=== PATIENT | male | born 1955 | race African-American/Black ===

== ENCOUNTER 2018-01-04 15:21 | Emergency (ER) | payer MEDICAID ==
[~2018-01-04] VITALS: Ht 177.8 cm; Wt 110.0 kg
[2018-01-04] MEDS ORDERED: LISI2.5T47 PO (15:25)
[2018-01-04] MEDS ORDERED: AMLO2.5T45 PO (15:26)
[2018-01-04 17:54] LABS: BASOPHILS % 0.7 % (0.0-2.0); EOSINOPHILS % 2.9 % (0.0-5.0); HEMOGLOBIN. 12.9 g/dL (14.0-18.0); LYMPHOCYTES % 40.5 % (20.0-50.0); MEAN CORPUSCULAR VOLUME 90.5 fL (80.0-94.0); MEAN PLATELET VOLUME 11.1 fl (7.4-10.4); MONOCYTES % 9.7 % (2.0-8.0); NEUTROPHILS % 46.2 % (40.0-76.0); PLATELET 228 x1000/uL (130-400); RED BLOOD CELL COUNT 4.31 mill/uL (4.7-6.1); RED CELL DISTRIBUTION WIDTH 15.6 % (11.6-14.6)
[2018-01-04 17:57] LABS: CHLORIDE 104 mEq/L (98-107)
[2018-01-04 18:14] LABS: AMMONIA 52 uMol/L (<32)
[2018-01-04 18:35] LABS: HEPATITIS B SURFACE ANTIGEN NEGATIVE
[2018-01-04] MEDS ORDERED: MORPHINE SULFATE 4 MG/ML CPJ (NOT FOR IM USE) IV ONE (19:00)
[2018-01-04 19:04] LABS: HEPATITIS B CORE AB IGM NEGATIVE
[2018-01-04 19:05] LABS: HEPATITIS A AB IGM NEGATIVE (NEGATIVE)
[2018-01-04 19:38] VITALS: BP 159/77
[2018-01-05] MEDS ORDERED: ASPI-986 MT (10:57)
== END 2018-01-04 22:57 | disposition left against medical advice (07) ==
LOC: ER 15:34
DX: M79.605 Pain in left leg (principal); D64.9 Anemia, unspecified; R61 Generalized hyperhidrosis; R01.1 Cardiac murmur, unspecified; K72.90 Hepatic failure, unspecified without coma; R79.89 Other specified abnormal findings of blood chemistry; E88.09 Other disorders of plasma-protein metabolism, not elsewhere classified; R53.81 Other malaise; E86.0 Dehydration; I10 Essential (primary) hypertension; F41.9 Anxiety disorder, unspecified; Z87.09 Personal history of other diseases of the respiratory system; Z98.890 Other specified postprocedural states; Z79.82 Long term (current) use of aspirin
CPT/HCPCS: 36415; 71045; 80053; 82140; 83036; 83735; 83880; 84484; 85025; 86705; 86709; 86803; 87340; 93005; 93970; 99285

== ENCOUNTER 2018-04-01 11:20 | Inpatient (IN) | payer OTHER, MEDICAID ==
[~2018-04-01] VITALS: Ht 180.3 cm; Wt 93.4 kg
[~2018-04-01 11:20] MED LIST: ASPI-986 MT
[2018-04-01] MEDS ORDERED: IBUPROFEN 600MG TABLET PO ONE (11:45)
[2018-04-01 12:27] LABS: BASOPHILS % 0.8 % (0.0-2.0); EOSINOPHILS % 2.1 % (0.0-5.0); HEMOGLOBIN. 14.2 g/dL (14.0-18.0); LYMPHOCYTES % 43.8 % (20.0-50.0); MEAN CORPUSCULAR HEMOGLOBIN 29.6 pg (28.0-32.0); MEAN CORPUSCULAR VOLUME 87.1 fL (80.0-94.0); MEAN PLATELET VOLUME 10.4 fl (7.4-10.4); MONOCYTES % 11.5 % (2.0-8.0); NEUTROPHILS % 41.8 % (40.0-76.0); PLATELET 162 x1000/uL (130-400); RED BLOOD CELL COUNT 4.82 mill/uL (4.7-6.1); RED CELL DISTRIBUTION WIDTH 17.2 % (11.6-14.6)
[2018-04-01 12:33] LABS: CHLORIDE 106 mEq/L (98-107); PROTHROMBIN TIME 10.3 sec (9.1-11.1)
[2018-04-01] MEDS ORDERED: HYDRALAZINE 20MG/ML VIAL IV ONE ×2 (14:00→15:30)
[2018-04-01] MEDS ORDERED: IOHEXOL-350 100 ML BOTTLE ONE (16:22)
[2018-04-01] MEDS ORDERED: ASPIRIN 81MG TABLET PO ONE (17:15)
[2018-04-01] MEDS ORDERED: NITROGLYCERIN 0.4MG TABLET SL SL PRN (17:15)
[2018-04-01 22:37] VITALS: BP 179/83
[2018-04-02] VITALS (7 sets, daily range): BP systolic 145–161; BP diastolic 66–95
[2018-04-02] MEDS ORDERED: HYDROMORPHONE HCL/PF 2MG/ML CPJ IV PRN (01:00)
[2018-04-02] MEDS: METOPROLOL TARTRATE 50MG TABLET PO SCH ×3 (01:14→20:27)
[2018-04-02] MEDS: NITROGLYCERIN OINT 1GM/INCH UDPKT TD SCH ×3 (01:14→18:00)
[2018-04-02] MEDS ORDERED: PNEUMOCOCCAL 23-VAL P-SAC VAC 0.5 ML IM ONE (08:00)
[2018-04-02] MEDS: ASPIRIN 325MG EC TABLET PO SCH (08:56)
[2018-04-02 09:30] LABS: BASOPHILS % 0.8 % (0.0-2.0); EOSINOPHILS % 1.9 % (0.0-5.0); HEMATOCRIT. 41.5 % (42.0-52.0); HEMOGLOBIN. 13.9 g/dL (14.0-18.0); LYMPHOCYTES % 42.6 % (20.0-50.0); MEAN CORPUSCULAR HEMOGLOBIN 29.1 pg (28.0-32.0); MEAN CORPUSCULAR VOLUME 87.2 fL (80.0-94.0); MEAN PLATELET VOLUME 9.7 fl (7.4-10.4); NEUTROPHILS % 44.7 % (40.0-76.0); PLATELET 159 x1000/uL (130-400); RED BLOOD CELL COUNT 4.76 mill/uL (4.7-6.1); RED CELL DISTRIBUTION WIDTH 17.3 % (11.6-14.6)
[2018-04-02 09:43] LABS: CHLORIDE 104 mEq/L (98-107)
[2018-04-02 09:53] LABS: LDL CHOLESTEROL 72 mg/dL (5-100)
[2018-04-02 09:54] LABS: HDL CHOLESTEROL 65 mg/dL (40-59)
[2018-04-02] MEDS: ENOXAPARIN 40MG/0.4ML SYR SUBCUT SCH (12:09)
[2018-04-02] MEDS: CLONIDINE 0.1MG TABLET PO PRN (16:25)
[2018-04-02] MEDS: HYDROCODONE/ACETAMINOPHEN 5/325MG TABLET PO PRN (16:26)
[2018-04-02 19:55] LABS: CLARITY URINE TURBID (CLEAR); COLOR URINE YELLOW (YELLOW); KETONES URINE NEGATIVE (NEGATIVE); LEUKOCYTE ESTERASE URINE NEGATIVE (NEGATIVE); NITRITE URINE NEGATIVE (NEGATIVE); OCCULT BLOOD URINE NEGATIVE (NEGATIVE); PH URINE 7.5 (4.5-8.0); PROTEIN URINE NEGATIVE (NEGATIVE); SPECIFIC GRAVITY URINE 1.019 (1.005-1.030)
[2018-04-02 20:20] LABS: *BARBITURATES SCREEN URINE NEGATIVE (NEGATIVE)
[2018-04-02 20:21] LABS: *AMPHETAMINES SCREEN URINE NEGATIVE (NEGATIVE); *BENZODIAZEPINES SCREEN URINE NEGATIVE (NEGATIVE); *COCAINE SCREEN URINE NEGATIVE (NEGATIVE); METHADONE URINE SCREEN NEGATIVE (NEGATIVE)
[2018-04-02 20:22] LABS: CANNABINOID URINE SCREEN PRESUMTIVE POSITIVE (NEGATIVE); OPIATES URINE SCREEN NEGATIVE (NEGATIVE); PHENCYCLIDINE URINE SCREEN NEGATIVE (NEGATIVE)
[2018-04-02] MEDS: AMLODIPINE 5MG TABLET PO SCH (20:26)
[2018-04-02] MEDS ORDERED: AMLODIPINE 2.5MG TABLET PO SCH (21:00)
[2018-04-03] VITALS (7 sets, daily range): BP systolic 137–161; BP diastolic 79–96
[2018-04-03] MEDS: NITROGLYCERIN OINT 1GM/INCH UDPKT TD SCH ×2 (02:00→10:22)
[2018-04-03 07:45] LABS: BASOPHILS % 0.7 % (0.0-2.0); EOSINOPHILS % 3.3 % (0.0-5.0); HEMOGLOBIN. 13.7 g/dL (14.0-18.0); LYMPHOCYTES % 45.6 % (20.0-50.0); MEAN CORPUSCULAR HEMOGLOBIN 29.6 pg (28.0-32.0); MEAN CORPUSCULAR VOLUME 86.7 fL (80.0-94.0); MEAN PLATELET VOLUME 9.8 fl (7.4-10.4); MONOCYTES % 9.4 % (2.0-8.0); PLATELET 169 x1000/uL (130-400); RED BLOOD CELL COUNT 4.62 mill/uL (4.7-6.1); RED CELL DISTRIBUTION WIDTH 17.3 % (11.6-14.6)
[2018-04-03 09:04] LABS: CHLORIDE 104 mEq/L (98-107)
[2018-04-03] MEDS: ASPIRIN 325MG EC TABLET PO SCH (10:20)
[2018-04-03] MEDS: METOPROLOL TARTRATE 50MG TABLET PO SCH (10:21)
[2018-04-03] MEDS: AMLODIPINE 5MG TABLET PO SCH (10:21)
[2018-04-03] MEDS: ENOXAPARIN 40MG/0.4ML SYR SUBCUT SCH (10:22)
[2018-04-03] MEDS: HYDROCODONE/ACETAMINOPHEN 5/325MG TABLET PO PRN (15:35)
[2018-04-03] MEDS: CLONIDINE 0.1MG TABLET PO PRN (16:19)
[2018-04-04 13:09] LABS: HIV SCREEN 4G Non Reactive (Non Reactive)
== END 2018-04-03 20:00 | disposition home or self-care (01) | DRG 48 ==
LOC: ER 11:52 → ENRESERV 19:44 → 6WST 21:46
PROVIDERS: ADMIT Internal Medicine; ATTEND Internal Medicine
DX: G90.8 Other disorders of autonomic nervous system (principal); F12.90 Cannabis use, unspecified, uncomplicated; F17.200 Nicotine dependence, unspecified, uncomplicated; I10 Essential (primary) hypertension; F41.9 Anxiety disorder, unspecified; R07.89 Other chest pain; Z79.82 Long term (current) use of aspirin; Z71.6 Tobacco abuse counseling
CPT/HCPCS: 36415; 71045; 71275; 80048; 80061; 80305; 84443; 84484; 85379; 87389; 90732; 93005; 93306; 93970; 96374; 96376; 97110; 97162; 97535; 99285; J0360; J1650; Q9967

== ENCOUNTER 2024-09-02 00:26 | Inpatient (IN) | payer OTHER ==
[~2024-09-02] VITALS: Ht 180.3 cm; Wt 93.9 kg
[2024-09-02] MEDS ORDERED: DEXTROSE 50% WATER 50ML SYRINGE IV PRN (06:15)
[2024-09-02] MEDS: BLOOD SUGAR DIAGNOSTIC STRIP TEST SCH (07:20)
[2024-09-02] MEDS: INSULIN LISPRO 100 UNITS/ML SUBCUT SCH (07:50)
[2024-09-02 08:00] VITALS: BP 145/89; PULSE 78; RESP 18; TEMP 36.4; O2SAT 98
[2024-09-02] MEDS: LOSARTAN 25 MG TABLET PO SCH (09:42)
[2024-09-02] MEDS: AMLODIPINE 10MG TABLET PO SCH (09:42)
[2024-09-02 09:52] LABS: BASOPHILS % 0.7 % (0.0-2.0); EOSINOPHILS % 3.2 % (0.0-5.0); HEMATOCRIT. 37.3 % (42.0-52.0); HEMOGLOBIN. 12.3 g/dL (14.0-18.0); LYMPHOCYTES % 36.7 % (20.0-50.0); MEAN CORPUSCULAR HEMOGLOBIN 28.5 pg (28.0-32.0); MEAN CORPUSCULAR HGB CONC 32.9 g/dL (31.0-37.0); MEAN CORPUSCULAR VOLUME 86.8 fL (80.0-94.0); MEAN PLATELET VOLUME 9.2 fl (7.4-10.4); MONOCYTES % 9.1 % (2.0-8.0); NEUTROPHILS % 50.3 % (40.0-76.0); PLATELET 155 x1000/uL (130-400); RED CELL DISTRIBUTION WIDTH 16.5 % (11.6-14.6); WHITE BLOOD COUNT 3.8 x1000/uL (4.5-11.0)
[2024-09-02 09:54] LABS: PARTIAL THROMBOPLASTIN TIME 27.2 sec (23.4-31.0); PROTHROMBIN TIME 11.1 sec (9.6-11.0)
[2024-09-02 10:37] LABS: CALCIUM 8.6 mg/dL (8.7-10.4); CARBON DIOXIDE 27 mEq/L (21-32); CHLORIDE 104 mEq/L (98-107); POTASSIUM 3.6 mEq/L (3.5-5.1); SODIUM 140 mEq/L (136-145)
[2024-09-02 10:42] LABS: TROPONIN I HIGH SENSITIVITY 10 ng/L (3.0-53)
[2024-09-02 10:43] LABS: CREATININE 0.8 mg/dL (0.6-1.3); GLUCOSE 138 mg/dL (70-105); UREA NITROGEN BLOOD 12 mg/dL (9-23)
[2024-09-02 10:44] LABS: ETHANOL BLOOD < 10 mg/dL (<10)
[2024-09-02 12:00] VITALS: BP 161/95; PULSE 63; RESP 17; TEMP 36.8; O2SAT 99
[2024-09-02] MEDS ORDERED: NALOXONE HCL 0.4MG/ML VIAL IV PRN (12:45)
[2024-09-02] MEDS: HYDROCODONE/ACETAMINOPHEN 10/325MG TABLET PO PRN (12:53)
[2024-09-02] MEDS: ASPIRIN 81MG TABLET PO SCH (12:56)
[2024-09-02 13:28] VITALS: BP 174/89; PULSE 63; RESP 17; TEMP 36.4
[2024-09-02] MEDS ORDERED: HYDRALAZINE HCL 50MG TABLET PO SCH (14:00)
[2024-09-02] MEDS: HYDRALAZINE HCL 100MG TABLET PO SCH (14:00)
[2024-09-02 15:12] VITALS: BP 156/81; PULSE 63; TEMP 97.3; O2SAT 98
[2024-09-02 16:00] VITALS: BP 161/85; PULSE 81; RESP 17; TEMP 36.8; O2SAT 98
[2024-09-02 20:00] VITALS: BP 155/91; PULSE 83; RESP 18; TEMP 36.1; O2SAT 98
[2024-09-02] MEDS: ENOXAPARIN 30MG/0.3ML SYR SUBCUT SCH (21:00)
[2024-09-02] MEDS: ATORVASTATIN CALCIUM 40MG TABLET PO SCH (21:47)
[2024-09-02] MEDS: HYDRALAZINE HCL 10MG TABLET PO PRN (23:06)
[2024-09-03 04:00] VITALS: BP 160/96; PULSE 64; RESP 18; TEMP 36.9; O2SAT 100
[2024-09-03 08:00] VITALS: BP 154/76; PULSE 68; RESP 16; TEMP 36.8; O2SAT 97
[2024-09-03 12:00] VITALS: BP 116/95; PULSE 67; RESP 17; TEMP 36.6; O2SAT 97
[2024-09-03 16:50] VITALS: PULSE 82; RESP 17; TEMP 36.6; O2SAT 98
[2024-09-03 16:52] VITALS: BP 135/59; PULSE 82; RESP 17; TEMP 36.6; O2SAT 59
[2024-09-04 05:45] VITALS: BP 122/73
[2024-09-04 08:00] VITALS: BP 132/58; PULSE 72; RESP 16; TEMP 36.7; O2SAT 97
[2024-09-04 10:03] VITALS: BP 132/58; PULSE 72; RESP 16; TEMP 36.7; O2SAT 97
[2024-09-04 12:00] VITALS: BP 135/64; PULSE 69; RESP 18; TEMP 36.7; O2SAT 98
[2024-09-04 16:00] VITALS: BP 147/72; PULSE 80; RESP 17; TEMP 36.7; O2SAT 99
[2024-09-04 20:00] VITALS: BP 148/84; PULSE 72; RESP 20; TEMP 36.3; O2SAT 100
[2024-09-04] MEDS: ZOLPIDEM TARTRATE 5MG TABLET PO PRN (21:01)
[2024-09-05 04:00] VITALS: BP 123/64; PULSE 66; RESP 20; TEMP 36.4; O2SAT 97
[2024-09-05 08:30] VITALS: BP 152/81; PULSE 66; RESP 20; TEMP 36.3; O2SAT 98
[2024-09-05] MEDS: LOSARTAN 50 MG TABLET PO SCH (09:42)
[2024-09-05] MEDS: HYDROCODONE/ACETAMINOPHEN 10/325MG TABLET PO PRN (09:43)
[2024-09-05 12:00] VITALS: BP 179/97; PULSE 95; RESP 21; TEMP 36.6; O2SAT 98
[2024-09-05] MEDS: HYDRALAZINE HCL 10MG TABLET PO PRN (12:28)
[2024-09-05 14:00] VITALS: BP 143/83; PULSE 78; RESP 19; TEMP 36.4; O2SAT 98
[2024-09-05 16:00] VITALS: BP 168/92; PULSE 83; RESP 18; TEMP 36.4; O2SAT 97
[2024-09-05] MEDS: CLONIDINE 0.1MG TABLET PO PRN (18:23)
[2024-09-05 20:00] VITALS: BP 126/70; PULSE 74; RESP 18; TEMP 36.5; O2SAT 98
[2024-09-06] VITALS: RESP 18
[2024-09-06 04:00] VITALS: BP 136/62; PULSE 76; RESP 18; TEMP 36.7; O2SAT 98
[2024-09-06 08:00] VITALS: BP 154/86; PULSE 64; RESP 18; TEMP 36.9; O2SAT 99
[2024-09-06 12:00] VITALS: BP 186/91; PULSE 64; PULSE 67; RESP 18; TEMP 36.8; O2SAT 100
[2024-09-06 16:00] VITALS: BP 140/68; PULSE 72; RESP 16; TEMP 36.9; O2SAT 96
[2024-09-06 20:00] VITALS: BP 131/79; PULSE 75; RESP 19; TEMP 36.7; O2SAT 98
[2024-09-07 04:00] VITALS: BP 137/81; PULSE 70; RESP 19; TEMP 37; O2SAT 97
[2024-09-07 08:00] VITALS: BP 148/73; PULSE 63; RESP 16; TEMP 36.4; O2SAT 98
[2024-09-07] MEDS: ENOXAPARIN 40MG/0.4ML SYR SUBCUT SCH (09:00)
[2024-09-07 12:00] VITALS: BP 172/81; PULSE 67; RESP 17; TEMP 36.7; O2SAT 99
[2024-09-07 16:00] VITALS: BP 163/88; PULSE 71; RESP 18; TEMP 36.8; O2SAT 99
[2024-09-07 17:15] VITALS: BP 136/84; RESP 15; TEMP 36.6; O2SAT 100
[2024-09-07 20:00] VITALS: BP 148/88; PULSE 69; RESP 18; TEMP 36.7; O2SAT 97
[2024-09-08 08:00] VITALS: BP 148/81; PULSE 71; RESP 17; TEMP 36.3; O2SAT 95
[2024-09-08] MEDS ORDERED: NALOXONE HCL 0.4MG/ML VIAL IV PRN (08:45)
[2024-09-08] MEDS: HYDROCODONE/ACETAMINOPHEN 10/325MG TABLET PO PRN (08:46)
[2024-09-08 12:00] VITALS: BP 132/63; PULSE 71; RESP 17; TEMP 36.5; O2SAT 100
[2024-09-08 16:00] VITALS: BP 128/78; PULSE 65; RESP 17; TEMP 36.3; O2SAT 99
[2024-09-08 20:00] VITALS: BP 160/81; PULSE 72; RESP 16; TEMP 36.5; O2SAT 100
[2024-09-09 04:00] VITALS: BP 128/64; PULSE 72; RESP 18; TEMP 36.9; O2SAT 100
[2024-09-09 08:00] VITALS: BP 144/71; PULSE 82; RESP 20; TEMP 36.8; O2SAT 100
[2024-09-09 12:00] VITALS: BP 160/83; PULSE 63; RESP 20; TEMP 36.6; O2SAT 100
[2024-09-09 16:00] VITALS: BP 147/60; PULSE 82; RESP 20; TEMP 36.7; O2SAT 100
[2024-09-09 20:00] VITALS: BP 142/72; PULSE 82; RESP 20; TEMP 36.4; O2SAT 100
[2024-09-09] MEDS: ZOLPIDEM TARTRATE 5MG TABLET PO PRN (23:35)
[2024-09-10] VITALS: BP 170/103; PULSE 98; RESP 20; TEMP 36.4; O2SAT 99
[2024-09-10 08:00] VITALS: BP 162/73; PULSE 86; RESP 17; TEMP 36.3; O2SAT 98
[2024-09-10 09:27] VITALS: BP 156/72; PULSE 71; RESP 18; O2SAT 98
[2024-09-10 12:00] VITALS: BP 133/74; PULSE 72; RESP 17; TEMP 36.4; O2SAT 98
[2024-09-10 16:00] VITALS: BP 128/73; PULSE 75; RESP 18; TEMP 36.7; O2SAT 98
[2024-09-10 20:00] VITALS: BP 128/64; PULSE 82; RESP 18; TEMP 36.4; O2SAT 98
[2024-09-11 04:00] VITALS: BP 166/82; PULSE 85; RESP 18; TEMP 36.6; O2SAT 97
[2024-09-11 08:00] VITALS: BP 153/75; PULSE 81; RESP 20; O2SAT 99
[2024-09-11 12:00] VITALS: BP 138/72; PULSE 79; RESP 20; TEMP 36.6; O2SAT 100
[2024-09-11 16:00] VITALS: BP 112/65; PULSE 75; RESP 18; TEMP 36.7; O2SAT 99
[2024-09-11 20:00] VITALS: BP 118/63; PULSE 74; RESP 17; TEMP 36.4; O2SAT 100
[2024-09-12 08:00] VITALS: BP 142/67; PULSE 75; RESP 20; TEMP 36.7; O2SAT 100
[2024-09-12 12:00] VITALS: BP 142/79; PULSE 68; RESP 18; TEMP 36.9; O2SAT 100
[2024-09-12 16:00] VITALS: BP 143/80; PULSE 99; RESP 20; TEMP 36.7; O2SAT 100
[2024-09-12 20:00] VITALS: BP 138/89; PULSE 81; RESP 16; TEMP 37.1; O2SAT 99
[2024-09-13 04:00] VITALS: BP 146/65; PULSE 77; RESP 16; TEMP 36.7; O2SAT 99
[2024-09-13 08:00] VITALS: BP 142/80; PULSE 90; RESP 17; TEMP 36.6; O2SAT 98
[2024-09-13 12:00] VITALS: BP 123/64; PULSE 72; RESP 16; TEMP 37; O2SAT 98
[2024-09-13] MEDS: POLYETHYLENE GLYCOL 3350 (17GM) 1 DOSE PACK PO SCH (12:06)
[2024-09-13] MEDS: SENNOSIDES/DOCUSATE SOD 8.6/50MG TABLET PO PRN (15:03)
[2024-09-13 16:00] VITALS: BP 144/76; PULSE 73; RESP 18; TEMP 37.2; O2SAT 99
[2024-09-13 20:00] VITALS: BP 136/62; PULSE 75; RESP 20; TEMP 36.3; O2SAT 100
[2024-09-14 06:00] VITALS: PULSE 70; RESP 18; TEMP 36.6; O2SAT 100
[2024-09-14 08:00] VITALS: BP 138/77; PULSE 73; RESP 19; TEMP 36.2; O2SAT 97
[2024-09-14] MEDS ORDERED: NALOXONE HCL 0.4MG/ML VIAL IV PRN (08:45)
[2024-09-14] MEDS: HYDROCODONE/ACETAMINOPHEN 10/325MG TABLET PO PRN (09:06)
[2024-09-14 12:00] VITALS: BP 147/78; PULSE 66; RESP 18; TEMP 36.3; O2SAT 98
[2024-09-14 16:00] VITALS: BP 150/89; PULSE 77; RESP 18; TEMP 36.5; O2SAT 97
[2024-09-14 20:00] VITALS: BP 150/72; PULSE 86; RESP 20; TEMP 36.4; O2SAT 96
[2024-09-15 06:00] VITALS: BP 133/66; PULSE 78; RESP 18; TEMP 38.1; O2SAT 97
[2024-09-15 12:00] VITALS: BP 142/64; PULSE 67; RESP 18; TEMP 36.4; O2SAT 98
[2024-09-15 16:00] VITALS: BP 150/60; PULSE 70; RESP 18; TEMP 36.4; O2SAT 98
[2024-09-15 20:00] VITALS: BP 128/74; PULSE 74; RESP 20; TEMP 36.6; O2SAT 99
[2024-09-16] VITALS: BP 153/78; PULSE 70; RESP 19; TEMP 36.7; O2SAT 99
[2024-09-16 08:00] VITALS: BP 147/81; PULSE 65; RESP 20; TEMP 36.4; O2SAT 98
[2024-09-16 16:00] VITALS: BP 141/71; PULSE 74; RESP 19; TEMP 36.3; O2SAT 100
[2024-09-16 20:00] VITALS: BP 138/69; PULSE 74; RESP 19; TEMP 36.5; O2SAT 99
[2024-09-17] MEDS: ZOLPIDEM TARTRATE 5MG TABLET PO PRN (23:05)
[2024-09-18] VITALS: BP 141/79; PULSE 96; RESP 18; TEMP 36.4; O2SAT 99
[2024-09-18 08:00] VITALS: BP 130/70; PULSE 72; RESP 17; TEMP 36.4; O2SAT 97
[2024-09-18 12:00] VITALS: BP 135/70; PULSE 70; RESP 17; TEMP 36.7; O2SAT 98
[2024-09-18 16:00] VITALS: BP 130/72; PULSE 73; RESP 17; TEMP 36.7; O2SAT 98
[2024-09-18 20:00] VITALS: BP 146/75; PULSE 69; RESP 18; TEMP 36.1; O2SAT 99
[2024-09-19 08:00] VITALS: BP 156/90; PULSE 71; RESP 18; TEMP 36.1; O2SAT 99
[2024-09-19] MEDS: HYDROCODONE/ACETAMINOPHEN 10/325MG TABLET PO PRN (11:41)
[2024-09-19 12:00] VITALS: BP 159/87; PULSE 74; RESP 18; TEMP 36.6; O2SAT 100
[2024-09-19 16:00] VITALS: BP 151/87; PULSE 65; RESP 17; TEMP 35.9; O2SAT 100
[2024-09-19] MEDS ORDERED: ZOLPIDEM TARTRATE 5MG TABLET PO PRN (19:45)
[2024-09-19 20:00] VITALS: BP 149/87; RESP 18; TEMP 35.9; O2SAT 98
[2024-09-19] MEDS: ZOLPIDEM TARTRATE 5MG TABLET PO PRN (23:02)
[2024-09-20 08:00] VITALS: BP 171/100; PULSE 64; RESP 18; TEMP 36.6; O2SAT 98
[2024-09-20] MEDS ORDERED: ATOR40TA70 MT (09:43)
[2024-09-20] MEDS ORDERED: HYDR-2988 MT (09:43)
[2024-09-20] MEDS ORDERED: ASPI-1497 MT (09:43)
[2024-09-20] MEDS ORDERED: AMLO10TA80 MT (09:43)
[2024-09-20] MEDS ORDERED: LOSA50TA41 MT (09:43)
[2024-09-20 12:00] VITALS: BP 136/63; PULSE 66; RESP 18; TEMP 36.2; O2SAT 98
== END 2024-09-20 14:45 | disposition home or self-care (01) | DRG 199 ==
LOC: ER 00:26 → 6WST 03:16 → ENRESERV 03:37 → 7EST 09-07 16:29
PROVIDERS: ADMIT Internal Medicine; ATTEND Internal Medicine
DX: I16.0 Hypertensive urgency (principal); D64.9 Anemia, unspecified; F12.90 Cannabis use, unspecified, uncomplicated; I10 Essential (primary) hypertension; F41.9 Anxiety disorder, unspecified; K59.00 Constipation, unspecified; Z86.73 Personal history of transient ischemic attack (TIA), and cerebral infarction without residual deficits
CPT/HCPCS: 36415; 71045; 80048; 80320; 82962; 83036; 83880; 84484; 85025; 93005; 97110; 97161; 97166; 97530; 97535; 97542; 99285; A4606; G0378; J1650; J1815; G0480

== ENCOUNTER 2024-10-19 16:29 | Inpatient (IN) | payer OTHER ==
[~2024-10-19] VITALS: Ht 180.3 cm; Wt 108.9 kg
[~2024-10-19 16:29] MED LIST changes: +AMLO10TA80 MT; +ASPI-1497 MT; -ASPI-986 MT; +ATOR40TA70 MT; +HYDR-2988 MT; +LOSA50TA41 MT
[2024-10-19 16:40] VITALS: O2SAT 100
[2024-10-19] MEDS: ACETAMINOPHEN 500MG TABLET PO ONE (18:00)
[2024-10-19 18:26] LABS: BASOPHILS % 1.1 % (0.0-2.0); EOSINOPHILS % 4.0 % (0.0-5.0); HEMATOCRIT. 36.2 % (42.0-52.0); HEMOGLOBIN. 11.7 g/dL (14.0-18.0); LYMPHOCYTES % 33.6 % (20.0-50.0); MEAN PLATELET VOLUME 8.5 fl (7.4-10.4); MONOCYTES % 9.9 % (2.0-8.0); NEUTROPHILS % 51.4 % (40.0-76.0); PLATELET 198 x1000/uL (130-400); RED BLOOD CELL COUNT 4.30 mill/uL (4.7-6.1); RED CELL DISTRIBUTION WIDTH 16.5 % (11.6-14.6)
[2024-10-19 18:43] LABS: CREATININE 0.8 mg/dL (0.6-1.3); TROPONIN I HIGH SENSITIVITY 5 ng/L (3.0-53); UREA NITROGEN BLOOD 11 mg/dL (9-23)
[2024-10-19 19:35] LABS: CLARITY URINE CLOUDY (CLEAR); COLOR URINE YELLOW (YELLOW); GLUCOSE URINE NEGATIVE (NEGATIVE); KETONES URINE NEGATIVE (NEGATIVE); LEUKOCYTE ESTERASE URINE NEGATIVE (NEGATIVE); NITRITE URINE NEGATIVE (NEGATIVE); OCCULT BLOOD URINE NEGATIVE (NEGATIVE); PH URINE 7.5 (4.5-8.0); PROTEIN URINE NEGATIVE (NEGATIVE); SPECIFIC GRAVITY URINE 1.013 (1.005-1.030); UROBILINOGEN URINE 0.2 E.U./dL (0.2-1.0)
[2024-10-19 20:07] LABS: AMORPHOUS SEDIMENT URINE 1+ /lpf; BACTERIA URINE 2+; RBC URINE 0-2 /hpf (0-2); SQUAMOUS EPITHELIAL CELL URINE FEW /lpf (RARE/1+); WBC URINE 0-2 /hpf (0-2)
[2024-10-19] MEDS ORDERED: ACETAMINOPHEN 325MG TABLET PO PRN (23:00)
[2024-10-19] MEDS ORDERED: ONDANSETRON HCL 4MG/2ML INJ IV PRN (23:00)
[2024-10-19] MEDS ORDERED: MAGNESIUM/ALUMINUM HYDROXIDE/SIMETHICONE 30ML UDC PO PRN (23:00)
[2024-10-19] MEDS ORDERED: DOCUSATE SODIUM 100MG CAPSULE PO PRN (23:00)
[2024-10-19] MEDS ORDERED: GUAIFENESIN 200MG/10ML SUGAR FREE UDC PO PRN (23:00)
[2024-10-19] MEDS ORDERED: IPRATROPIUM/ALBUTEROL 0.5-3(2.5)MG/3ML NEB HHN PRN (23:00)
[2024-10-19 23:59] VITALS: BP 156/85; PULSE 74; RESP 16; TEMP 36.1
[2024-10-20] VITALS: BP 156/85; PULSE 74; RESP 16; TEMP 36.1; O2SAT 99
[2024-10-20 00:29] LABS: *AMPHETAMINES SCREEN URINE NEGATIVE (NEGATIVE); *BARBITURATES SCREEN URINE NEGATIVE (NEGATIVE); *BENZODIAZEPINES SCREEN URINE NEGATIVE (NEGATIVE); *COCAINE SCREEN URINE NEGATIVE (NEGATIVE)
[2024-10-20 00:30] LABS: CANNABINOID URINE SCREEN NEGATIVE (NEGATIVE); ECSTASY MDMA SCREEN URINE NEGATIVE (NEGATIVE); METHADONE URINE SCREEN NEGATIVE (NEGATIVE); OPIATES URINE SCREEN NEGATIVE (NEGATIVE); PHENCYCLIDINE URINE SCREEN NEGATIVE (NEGATIVE)
[2024-10-20] MEDS ORDERED: HYDR12.54 PO (03:38)
[2024-10-20] MEDS ORDERED: ASPIRIN 81MG EC TABLET PO SCH (03:45)
[2024-10-20 08:19] LABS: BASOPHILS % 0.5 % (0.0-2.0); EOSINOPHILS % 4.9 % (0.0-5.0); HEMATOCRIT. 35.7 % (42.0-52.0); HEMOGLOBIN. 11.5 g/dL (14.0-18.0); LYMPHOCYTES % 37.6 % (20.0-50.0); MEAN PLATELET VOLUME 8.9 fl (7.4-10.4); MONOCYTES % 11.3 % (2.0-8.0); NEUTROPHILS % 45.7 % (40.0-76.0); PLATELET 204 x1000/uL (130-400); RED BLOOD CELL COUNT 4.27 mill/uL (4.7-6.1); RED CELL DISTRIBUTION WIDTH 16.5 % (11.6-14.6)
[2024-10-20 08:35] LABS: CREATININE 0.8 mg/dL (0.6-1.3); UREA NITROGEN BLOOD 11 mg/dL (9-23)
[2024-10-20 08:39] LABS: T4 FREE 1.15 ng/dL (0.89-1.76)
[2024-10-20] MEDS: ENOXAPARIN 40MG/0.4ML SYR SUBCUT SCH (09:00)
[2024-10-20] MEDS: FAMOTIDINE 20MG/2ML VIAL IV SCH (09:08)
[2024-10-20] MEDS: ASPIRIN 81MG EC TABLET PO SCH (09:09)
[2024-10-20] MEDS: LOSARTAN 50 MG TABLET PO SCH (09:10)
[2024-10-20] MEDS: AMLODIPINE 10MG TABLET PO SCH (09:11)
[2024-10-20 09:40] LABS: FOLIC ACID (FOLATE) SERUM > 20.00 ng/mL (>5.38); VITAMIN B12 SERUM 329 pg/mL (211-911)
[2024-10-20] MEDS: KETOROLAC 15MG/ML VIAL IV PRN (16:05)
[2024-10-20 20:00] VITALS: BP 182/100; PULSE 74; RESP 18; TEMP 36.6; O2SAT 100
[2024-10-20] MEDS: CLONIDINE 0.1MG TABLET PO PRN (20:43)
[2024-10-20] MEDS: ATORVASTATIN CALCIUM 40MG TABLET PO SCH (20:43)
[2024-10-21 05:30] VITALS: BP 179/85; PULSE 78; RESP 18; TEMP 36.6; O2SAT 99
[2024-10-21 08:00] VITALS: BP 150/92; PULSE 76; RESP 19; TEMP 36.8; O2SAT 97
[2024-10-21 11:19] LABS: BASOPHILS % 1.0 % (0.0-2.0); EOSINOPHILS % 5.1 % (0.0-5.0); HEMATOCRIT. 36.2 % (42.0-52.0); HEMOGLOBIN. 11.7 g/dL (14.0-18.0); LYMPHOCYTES % 38.5 % (20.0-50.0); MEAN PLATELET VOLUME 8.9 fl (7.4-10.4); MONOCYTES % 9.5 % (2.0-8.0); NEUTROPHILS % 45.9 % (40.0-76.0); PLATELET 227 x1000/uL (130-400); RED BLOOD CELL COUNT 4.32 mill/uL (4.7-6.1); RED CELL DISTRIBUTION WIDTH 16.1 % (11.6-14.6)
[2024-10-21 11:21] LABS: CREATININE 0.9 mg/dL (0.6-1.3); UREA NITROGEN BLOOD 12 mg/dL (9-23)
[2024-10-21 11:23] LABS: PHOSPHORUS 2.2 mg/dL (2.5-4.9)
[2024-10-21 12:00] VITALS: BP 152/73; PULSE 63; RESP 18; TEMP 36.6; O2SAT 99
[2024-10-21 20:00] VITALS: BP 156/85; PULSE 64; RESP 16; TEMP 36.6; O2SAT 100
[2024-10-22 06:13] VITALS: BP 134/78; PULSE 64; RESP 16; TEMP 36.6; O2SAT 99
[2024-10-22 08:00] VITALS: BP 154/74; PULSE 65; RESP 18; TEMP 36.5; O2SAT 100
[2024-10-22 12:00] VITALS: BP 161/89; PULSE 68; RESP 18; TEMP 36.1; O2SAT 99
[2024-10-22 18:25] LABS: BASOPHILS % 0.8 % (0.0-2.0); EOSINOPHILS % 2.7 % (0.0-5.0); HEMATOCRIT. 39.4 % (42.0-52.0); HEMOGLOBIN. 12.8 g/dL (14.0-18.0); LYMPHOCYTES % 32.7 % (20.0-50.0); MEAN PLATELET VOLUME 9.0 fl (7.4-10.4); MONOCYTES % 10.7 % (2.0-8.0); NEUTROPHILS % 53.1 % (40.0-76.0); PLATELET 252 x1000/uL (130-400); RED BLOOD CELL COUNT 4.71 mill/uL (4.7-6.1); RED CELL DISTRIBUTION WIDTH 16.5 % (11.6-14.6)
[2024-10-22 18:42] LABS: CREATININE 0.9 mg/dL (0.6-1.3); UREA NITROGEN BLOOD 13 mg/dL (9-23)
[2024-10-22 20:00] VITALS: BP 160/80; PULSE 79; RESP 18; TEMP 35.9; O2SAT 100
[2024-10-22] MEDS: ZOLPIDEM TARTRATE 5MG TABLET PO SCH (22:09)
[2024-10-23 12:00] VITALS: BP 143/76; PULSE 63; RESP 20; TEMP 36.4; O2SAT 100
[2024-10-23] MEDS: ACETAMINOPHEN 325MG TABLET PO PRN (15:07)
[2024-10-23 16:00] VITALS: BP 150/82; PULSE 78; RESP 20; TEMP 36.7; O2SAT 100
[2024-10-23 20:00] VITALS: BP 152/71; PULSE 74; RESP 18; TEMP 36.4; O2SAT 99
[2024-10-24 08:00] VITALS: BP 149/71; PULSE 65; RESP 16; TEMP 36.5; O2SAT 99
[2024-10-24 08:07] LABS: BASOPHILS % 0.8 % (0.0-2.0); EOSINOPHILS % 5.4 % (0.0-5.0); HEMATOCRIT. 36.4 % (42.0-52.0); HEMOGLOBIN. 12.1 g/dL (14.0-18.0); LYMPHOCYTES % 31.1 % (20.0-50.0); MEAN PLATELET VOLUME 8.8 fl (7.4-10.4); MONOCYTES % 11.9 % (2.0-8.0); NEUTROPHILS % 50.8 % (40.0-76.0); PLATELET 214 x1000/uL (130-400); RED BLOOD CELL COUNT 4.36 mill/uL (4.7-6.1); RED CELL DISTRIBUTION WIDTH 16.5 % (11.6-14.6)
[2024-10-24 08:17] LABS: CREATININE 1.0 mg/dL (0.6-1.3)
[2024-10-24 08:18] LABS: UREA NITROGEN BLOOD 14 mg/dL (9-23)
[2024-10-24 12:00] VITALS: BP 168/96; PULSE 67; RESP 18; TEMP 36.4; O2SAT 98
[2024-10-24 16:00] VITALS: BP 149/77; PULSE 70; RESP 18; TEMP 36.4; O2SAT 100
[2024-10-25 08:00] VITALS: BP 160/81; PULSE 60; RESP 18; TEMP 36.4; O2SAT 100
[2024-10-25 12:00] VITALS: PULSE 61; RESP 18; TEMP 36.1; O2SAT 100
[2024-10-25] MEDS: KETOROLAC 15MG/ML VIAL IV PRN (14:06)
[2024-10-25 16:00] VITALS: BP 143/70; PULSE 68; RESP 18; TEMP 36.4; O2SAT 99
[2024-10-25 20:00] VITALS: BP 171/85; PULSE 73; RESP 20; TEMP 36.3; O2SAT 96
[2024-10-26 16:00] VITALS: BP 130/87; PULSE 68; RESP 17; TEMP 36.5; O2SAT 100
[2024-10-26 20:00] VITALS: BP 150/84; PULSE 71; RESP 18; TEMP 36.3; O2SAT 99
[2024-10-26] MEDS: MELATONIN 3MG TABLET PO NR (22:42)
[2024-10-27 12:00] VITALS: BP 166/80; PULSE 68; RESP 18; TEMP 36.8; O2SAT 100
[2024-10-27] MEDS: KETOROLAC 30MG/ML VIAL IV SCH (14:06)
[2024-10-27 16:00] VITALS: BP 214/78
[2024-10-27 17:05] VITALS: BP 178/99
[2024-10-27] MEDS ORDERED: HYDRALAZINE 10 MG in SODIUM CHLORIDE 0.9% 49.5 ML IV PRN (17:15)
[2024-10-27] MEDS ORDERED: HYDRALAZINE 20MG/ML VIAL IV PRN (17:45)
[2024-10-27] MEDS: HYDRALAZINE 10 MG in SODIUM CHLORIDE 0.9% 49.5 ML IV PRN (19:54)
[2024-10-27 20:00] VITALS: BP 171/76; PULSE 68; RESP 18; TEMP 36.6; O2SAT 100
[2024-10-28] VITALS: BP 176/96; PULSE 81; RESP 16; TEMP 36.5; O2SAT 99
[2024-10-28 08:00] VITALS: BP 160/92; PULSE 61; RESP 16; TEMP 36.3; O2SAT 100
[2024-10-28] MEDS: HYDRALAZINE HCL 50MG TABLET PO SCH (09:14)
== END 2024-10-28 10:48 | DRG 199 ==
LOC: ER 16:29 → EDBEDREQ 20:49 → 6EST 22:13 → EDBEDREQ 22:21 → ENRESERV 22:44
PROVIDERS: ADMIT Hospitalist; ATTEND Hospitalist
DX: I16.0 Hypertensive urgency (principal); I69.354 Hemiplegia and hemiparesis following cerebral infarction affecting left non-dominant side; E78.00 Pure hypercholesterolemia, unspecified; G89.29 Other chronic pain; I10 Essential (primary) hypertension; M47.896 Other spondylosis, lumbar region; Z53.20 Procedure and treatment not carried out because of patient's decision for unspecified reasons; M54.9 Dorsalgia, unspecified; Z99.3 Dependence on wheelchair; Z79.899 Other long term (current) drug therapy; Z79.82 Long term (current) use of aspirin; Z82.49 Family history of ischemic heart disease and other diseases of the circulatory system; F12.90 Cannabis use, unspecified, uncomplicated; W05.0XXA Fall from non-moving wheelchair, initial encounter; Y92.89 Other specified places as the place of occurrence of the external cause
CPT/HCPCS: 36415; 71045; 72192; 73560; 80048; 80305; 81003; 82550; 82607; 82728; 82746; 83540; 83550; 83735; 84100; 84439; 84443; 84484; 84550; 85025; 85651; 93005; 93970; 97162; 97166; 99285; A4606; J0360; J1308; J1650; J1885